=== PATIENT | male | born 1965 | race Caucasian/White ===

== ENCOUNTER 2016-11-27 11:06 | Emergency (ER) | payer OTHER ==
[~2016-11-27] VITALS: Ht 175.3 cm; Wt 72.5 kg
[2016-11-27 11:08] VITALS: BP 136/79; PULSE 86; RESP 20; TEMP 98.3; O2SAT 97
--- NOTE | 2016-11-27 11:27 | PD ---
HPI . cyst on back for 6 mts Chief Complaint: Lump, Cyst, Hernia Time Seen by Provider: 11:27 Travel History International Travel<30 days: No Contact w/Intl Traveler<30days: No Traveled to known affect area: No History of Present Illness HPI 51-year-old male with no significant past medical history here with complaints of a cyst/lump on his back for 6 months. Patient says that a few months ago he popped it and some sort of quotation "seed" popped out. They thought the lesion would eventually disappear but it seems to be getting larger. At times he reports that it leaks fluid, which is not present at the moment. It is tender to touch. He tells me he recently moved in June and does not have a primary care provider. He has no other complaints. PFSH Past Medical History Medical History: Denies Significant Hx Social History Alcohol Use: No Tobacco Use: No Substance Use: No Allergies-Medications (Allergen,Severity, Reaction): Coded Allergies: No Known Allergies (Unverified , 11/27/16) Reported Meds & Prescriptions none Review of Systems General / Constitutional: No: Fever Eyes: No: Visual changes HENT: No: Headaches Cardiovascular: No: Chest Pain or Discomfort Respiratory: No: Shortness of Breath Gastrointestinal: No: Abdominal Pain Genitourinary: No: Dysuria Musculoskeletal: No: Pain Skin: Positive Lesions (left side of mid back), No Rash Neurologic: No: Weakness Psychiatric: No: Depression Endocrine: No: Polydipsia Hematologic/Lymphatic: No: Easy Bruising Physical Exam Narrative GENERAL: AAO x 3, no acute distress, Well-nourished, well-developed patient. SKIN: Warm and dry. No visible rashes or bruising. Skin lesion on left mid back 1.5 cm circular with irregular borders, raised, color variation light pink to dark central core and crusting, no signs of infection, VERY SUSPICIOUS LESION HEAD: Normocephalic and atraumatic. EYES: No scleral icterus. No injection or drainage. ENT: No nasal drainage noted. Mucous membranes pink. Airway patent. NECK: Supple, trachea midline. No JVD. CARDIOVASCULAR: Regular rate and rhythm without murmurs, gallops, or rubs. RESPIRATORY: Breath sounds equal bilaterally. No accessory muscle use. No rhonchi or rales. GASTROINTESTINAL: Abdomen soft, non-tender, nondistended. EXTREMITIES: No cyanosis or edema. BACK: Nontender without obvious deformity. No CVA tenderness. PSYCH: AAO x 3, normal affect. Data Data Last Documented VS Vital Signs Date Time Temp Pulse Resp B/P Pulse Ox O2 Delivery O2 Flow Rate FiO2 11/27/16 11:08 98.3 86 20 136/79 97 Room Air MDM Medical Decision Making Medical Screen Exam Complete: Yes Emergency Medical Condition: Yes Medical Record Reviewed: Yes (none on file) Differential Diagnosis SCC, BCC, sebaceous cyst Narrative Course 51-year-old male with no significant past medical history here with complaints of a cyst/lump on his back for 6 months. Patient says that a few months ago he popped it and some sort of quotation "seed" popped out. They thought the lesion would eventually disappear but it seems to be getting larger. At times he reports that it leaks fluid, which is not present at the moment. It is tender to touch. He tells me he recently moved in June and does not have a primary care provider. He has no other complaints. Patient seen and examined. There is nothing to acutely treat in the ED. I discussed this with the patient. He will need outpatient follow-up as soon as possible as the skin lesion is very suspicious for cancer. I have discussed this with him and he is understanding. Patient verbalized understanding of instructions, questions were answered, and thanked me for their care. I advised them if their condition worsens, please return to the nearest emergency room for further care. Diagnosis Primary Impression: Skin lesion of back Referrals: [employer] Primary Care Physician Patient Instructions: General Instructions, Skin Cancer Prevention (ED) Additional Instructions: Please try to establish with a primary care provider in the area You will need to have this skin lesion checked immediately. It poses a risk of being skin cancer. Please follow-up with this next week. You can use topical neosporin if the lesions gets red and irritated, but that will not solve the problem. This lesion will need to be removed by a firearms model maker (skin doctor). Med/Other Pt SpecificInfo: No Change to Meds Disposition: 01 DISCHARGE HOME Condition: Stable Juliette Mckeon Nov 27, 2016 11:27
== END 2016-11-27 12:23 | disposition home or self-care (01) ==
LOC: NEPB 11:06
DX: L98.9 Disorder of the skin and subcutaneous tissue, unspecified (principal)
CPT/HCPCS: 99282